=== PATIENT | male | born 1960 | race Caucasian/White ===

== ENCOUNTER → 2021-11-06 12:18 | Outpatient (CLI) | payer OTHER, SELFPAY | PROVIDERS: Visit Provider Ophthalmology | DX: Z01.812 Encounter for preprocedural laboratory examination (principal); Z11.52 Encounter for screening for COVID-19 | CPT/HCPCS: C9803; U0003; U0005 ==

== ENCOUNTER 2021-11-09 08:23 | Day surgery (SDC) | payer OTHER, SELFPAY ==
[2021-11-09] VITALS (8 sets, daily range): BP systolic 146–178; BP diastolic 55–97; PULSE 50–57; RESP 18–22; TEMP 36.1–36.6; O2SAT 97–99; BMI 45.6
== END 2021-11-09 11:38 | disposition home or self-care (01) ==
LOC: OR 08:26
PROVIDERS: PCP Emergency Medicine; Visit Provider Ophthalmology
PROC: (CPT 66984; principal; 2021-11-09 10:00)
DX: H25.813 Combined forms of age-related cataract, bilateral (principal); H02.831 Dermatochalasis of right upper eyelid; H02.834 Dermatochalasis of left upper eyelid; F41.9 Anxiety disorder, unspecified; M19.90 Unspecified osteoarthritis, unspecified site; I48.91 Unspecified atrial fibrillation; J44.9 Chronic obstructive pulmonary disease, unspecified; I10 Essential (primary) hypertension; Z79.01 Long term (current) use of anticoagulants; Z79.899 Other long term (current) drug therapy
CPT/HCPCS: 66984; V2632

== ENCOUNTER → 2021-12-04 13:43 | Outpatient (CLI) | payer OTHER, SELFPAY | PROVIDERS: PCP Emergency Medicine; Visit Provider Emergency Medicine | DX: Z01.812 Encounter for preprocedural laboratory examination (principal); Z11.52 Encounter for screening for COVID-19 | CPT/HCPCS: C9803; U0003; U0005 ==

== ENCOUNTER 2021-12-07 08:14 | Day surgery (SDC) | payer OTHER, SELFPAY ==
[2021-12-01 10:38] VITALS: BMI 45.0
[2021-12-07 08:42] VITALS: BP 138/59; PULSE 58; RESP 18; TEMP 36.8; O2SAT 96
[2021-12-07 09:40] VITALS: BP 117/58; PULSE 52; RESP 16; O2SAT 100
[2021-12-07 09:45] VITALS: BP 123/57; PULSE 50; RESP 16; O2SAT 100
[2021-12-07 09:50] VITALS: BP 119/63; PULSE 50; RESP 16; O2SAT 100
[2021-12-07 09:57] VITALS: BP 151/84; PULSE 49; RESP 16; TEMP 36.6; O2SAT 96
== END 2021-12-07 10:10 | disposition home or self-care (01) ==
LOC: OR 08:15
PROVIDERS: PCP Emergency Medicine; Visit Provider Ophthalmology
PROC: (CPT 66984; principal; 2021-12-07 10:00)
DX: H25.813 Combined forms of age-related cataract, bilateral (principal); H02.831 Dermatochalasis of right upper eyelid; H02.834 Dermatochalasis of left upper eyelid; F41.9 Anxiety disorder, unspecified; M19.90 Unspecified osteoarthritis, unspecified site; I48.91 Unspecified atrial fibrillation; J44.9 Chronic obstructive pulmonary disease, unspecified; I10 Essential (primary) hypertension; Z72.0 Tobacco use
CPT/HCPCS: 66984; V2632; V2788

== ENCOUNTER 2023-01-10 08:48 | Day surgery (SDC) | payer OTHER, SELFPAY ==
[2023-01-06 14:23] VITALS: BMI 45.6
[2023-01-10 09:17] VITALS: BP 136/70; PULSE 60; RESP 18; TEMP 36.5; O2SAT 99
[2023-01-10 10:44] VITALS: BP 136/70; PULSE 60; RESP 18; TEMP 36.6; O2SAT 99
[2023-01-10 13:20] LABS: POC Glucose,Bedside 112 (70-110)
== END 2023-01-10 10:44 | disposition home or self-care (01) ==
LOC: OUTP 08:49
PROVIDERS: PCP Emergency Medicine; Visit Provider Ophthalmology
PROC: (CPT 66821; principal; 2023-01-10 09:00)
DX: H26.40 Unspecified secondary cataract (principal); F17.210 Nicotine dependence, cigarettes, uncomplicated; Z79.899 Other long term (current) drug therapy
CPT/HCPCS: 66821; 82962